=== PATIENT | female | born 1940 | race American Indian/Alaskan Native ===

== ENCOUNTER 2017-06-21 10:57 | Emergency (ER) | payer MEDICARE, BC ==
[2017-06-21 10:58] VITALS: PULSE 92; BMI 23.8
[2017-06-21 11:45] VITALS: RESP 18
[2017-06-21 12:25] VITALS: TEMP 97.9
[2017-06-21 12:45] LABS: BASO # 0.02 K/mm3 (0.0-2.0); BASO % 0.2 % (0.0-3.0); EOS # 0.2 (0.0-0.7); GRAN # 7.74 (1.4-6.5); GRAN % 81.1 % (50.0-68.0); HEMATOCRIT 34.2 % (36.0-48.0); LYMPH # 0.9 (1.2-3.4); LYMPH % 9.9 % (22.0-35.0); MEAN CELL VOLUME 86.4 fl (80.0-105.0); MEAN CORPUSCULAR HEMOGLOBIN 28.3 pg (25.0-35.0); MEAN CORPUSCULAR HGB CONC 32.7 g/dl (31.0-37.0); MEAN PLATELET VOLUME 10.5 fl (7.0-11.0); MONO # 0.7 (0.1-0.6); MONO % 6.8 % (1.0-6.0); RED CELL DISTRIBUTION WIDTH 16.7 % (11.5-14.5); WHITE BLOOD COUNT 9.5 10^3/ul (4.5-11.0)
[2017-06-21 12:49] LABS: INR 1.84 (0.93-1.08); PARTIAL THROMBOPLASTIN TIME 31.8 Seconds (25.1-36.5)
[2017-06-21 12:51] LABS: ALB/GLOB RATIO 1.2 (1.1-1.8); ALKALINE PHOSPHATASE 106 U/L (38-126); ALT/SGPT 36 U/L (7-56); AST/SGOT 42 U/L (14-36); BILIRUBIN,TOTAL 1.8 mg/dL (0.2-1.3); BLOOD UREA NITROGEN 24 mg/dL (7-21); CALCIUM 9.8 mg/dL (8.4-10.5); CARBON DIOXIDE 29 mmol/L (21-33); CHLORIDE 103 mmol/L (98-107); GFR AFRICAN-AMERICAN > 60; GLUCOSE,RANDOM 95 mg/dL (70-110); POTASSIUM 4.1 mmol/L (3.6-5.0); SODIUM 138 mmol/L (132-148); TOTAL PROTEIN 7.2 g/dL (5.8-8.3)
[2017-06-21 13:02] LABS: TROPONIN I < 0.01 ng/mL
--- NOTE | 2017-06-21 13:14 | ED PDOC ---
Arrival/HPI - General Chief Complaint: GI Problem Time Seen by Provider: 06/21/17 11:24 - History of Present Illness Narrative History of Present Illness (Text): 06/21/17 13:12 A 76 year old female, Past Medical History - Provider Review Nursing Documentation Reviewed: Yes - Infectious Disease Hx of Infectious Diseases: None - Reproductive Menopause: Yes - Cardiac Hx Cardiac Disorders: Yes (CAD, EF 16% with primacor infusion at home) Hx Congestive Heart Failure: Yes Hx Hypertension: Yes Hx Pacemaker: Yes - Pulmonary Hx Respiratory Disorders: Yes (Pulmonary embolism) Hx Chronic Obstructive Pulmonary Disease (COPD): Yes Hx Pneumonia: Yes - Neurological Hx Neurological Disorder: Yes (Multiple sclerosis) - HEENT Hx HEENT Disorder: Yes (WEARS RX GLASSES) - Hematological/Oncological Hx Cancer: Yes (Right breast CA with radiation) - Integumentary Hx Dermatological Disorder: Yes (BILATERAL LEG DANK A+3 MORE TO LEFT THAN RIGHT) - Musculoskeletal/Rheumatological Hx Falls: No - Gastrointestinal Hx Gastrointestinal Disorders: Yes (COLON POLYPS,LARGE CECAL POLYP,RIGHT HERNIORHAPPHY) - Genitourinary/Gynecological Hx Urinary Tract Infection: Yes - Psychiatric Hx Psychophysiologic Disorder: No Hx Emotional Abuse: No Hx Physical Abuse: No Hx Substance Use: No - Surgical History Other/Comment: rt chest lito cath - Anesthesia Hx Anesthesia Reactions: No Hx Malignant Hyperthermia: No - Suicidal Assessment Feels Threatened In Home Enviroment: No Family/Social History - Physician Review Nursing Documentation Reviewed: Yes Family/Social History: Unknown Family HX Smoking Status: Never Smoked Hx Alcohol Use: No Hx Substance Use: No Allergies/Home Meds Allergies/Adverse Reactions: Allergies FRESH FRUIT Allergy (Intermediate, Uncoded 06/21/17 11:45) UNKNOWN Home Medications: Home Meds Medication Instructions Recorded Confirmed Warfarin [Coumadin] 2 mg PO Q48H 04/21/15 06/21/17 Carvedilol 3.125 mg PO DAILY 11/23/15 06/21/17 Digoxin 0.25 mg PO DAILY 11/23/15 06/21/17 Furosemide 40 mg PO DAILY 11/23/15 06/21/17 Milrinone [Primacor 1mg/ml Inj 2.8 ml IV 06/21/17 (10ml)] Potassium Gluconate [Potassium] 20 meq PO DAILY 06/21/17 06/21/17 Physical Exam Vital Signs Reviewed: Yes Vital Signs Temp Pulse Resp BP Pulse Ox 06/21/17 12:24 97.9 F 69 18 135/86 97 06/21/17 11:38 96.8 F L 73 18 138/91 H 98 Temperature: Afebrile Blood Pressure: Hypertensive Pulse: Regular Respiratory Rate: Normal Medical Decision Making ED Course and Treatment: 06/21/17 13:12 Impression: A 76 year old female with Plan: -- EKG -- Labs -- Urine culture and Urinalysis -- Pepcid and Zofran -- Reassess and disposition Progress Notes: - Lab Interpretations Lab Results: 06/21/17 12:15 06/21/17 12:15 Lab Results 06/21/17 12:15: Sodium 138, Potassium 4.1, Chloride 103, Carbon Dioxide 29, Anion Gap 10, BUN 24 H, Creatinine 0.9, Est GFR ( Amer) > 60, Est GFR ( Non-Af Amer) > 60, Random Glucose 95, Calcium 9.8, Total Bilirubin 1.8 H, AST 42 H, ALT 36, Alkaline Phosphatase 106, Lactate Dehydrogenase 588, Total Creatine Kinase 84, Troponin I < 0.01 D, NT-Pro-B Natriuret Pep 5480 H, Total Protein 7.2, Albumin 3.9, Globulin 3.3, Albumin/Globulin Ratio 1.2 06/21/17 12:15: WBC 9.5 D, RBC 3.96, Hgb 11.2 L, Hct 34.2 L, MCV 86.4, MCH 28.3 , MCHC 32.7, RDW 16.7 H, Plt Count 203, MPV 10.5, Gran % 81.1 H, Lymph % (Auto) 9.9 L, [place] % (Auto) 6.8 H, Eos % (Auto) 2.0, Baso % (Auto) 0.2, Gran # 7.74 H, Lymph # 0.9 L, [place] # 0.7 H, Eos # 0.2, Baso # 0.02 06/21/17 12:15: PT 20.5 H, INR 1.84 H, APTT 31.8 I have reviewed the lab results: Yes - Medication Orders Current Medication Orders: Discontinued Medications Famotidine (Pepcid) 20 mg IVP STAT STA Stop: 06/21/17 12:06 Last Admin: 06/21/17 12:24 Dose: 20 mg IVP Administration Document 06/21/17 12:24 EQ (Rec: 06/21/17 12:24 EQ [facility] [id number]) Charges for Administration # of IVP Administrations 1 Ondansetron HCl (Zofran Inj) 4 mg IVP STAT STA Stop: 06/21/17 12:06 Last Admin: 06/21/17 12:24 Dose: 4 mg IVP Administration Document 06/21/17 12:24 EQ (Rec: 06/21/17 12:24 EQ [facility] [id number]) Charges for Administration # of IVP Administrations 1 - Scribe Statement The provider has reviewed the documentation as recorded by the Shiraibarabella Bustamante Provider Scribe Attestation: All medical record entries made by the Scribe were at my direction and personally dictated by me. I have reviewed the chart and agree that the record accurately reflects my personal performance of the history, physical exam, medical decision making, and the department course for this patient. I have also personally directed, reviewed, and agree with the discharge instructions and disposition. Disposition/Present on Arrival - Present on Arrival History of DVT/PE: No History of Uncontrolled Diabetes: No Urinary Catheter: No History of Decub. Ulcer: No History Surgical Site Infection Following: None - Disposition
--- NOTE | 2017-06-21 13:23 | ED PDOC ---
Arrival/HPI - General Chief Complaint: GI Problem Time Seen by Provider: 06/21/17 11:24 - History of Present Illness Narrative History of Present Illness (Text): 75 yo F w h/o Breast cancer currently in remission, systolic CHF on Milrinone drip among other comorbidities presents sent in from Dr. Hull's office where she had went for a routine visit, c/o mild epigastric disocmfort commencing in the am, she stated she took her bid cardevilol with a bagel in am, which did not exacerbate her epigasric docomfort, she held food and rx down but hen vomited twice in the doctor's office, prompting triage to ed. 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 She went to bed unevetfully w/ o Gi syptomatology, and denies PMHx: Systolic CHF (EF 16% on milrinone drip), Breast CA in remission, COPD, PE (on coumadin), CAD, MS, Osteopenia 06/21/17 13:13 Past Medical History - Infectious Disease Hx of Infectious Diseases: None - Reproductive Menopause: Yes - Cardiac Hx Cardiac Disorders: Yes (CAD, EF 16% with primacor infusion at home) Hx Congestive Heart Failure: Yes Hx Hypertension: Yes Hx Pacemaker: Yes - Pulmonary Hx Respiratory Disorders: Yes (Pulmonary embolism) Hx Chronic Obstructive Pulmonary Disease (COPD): Yes Hx Pneumonia: Yes - Neurological Hx Neurological Disorder: Yes (Multiple sclerosis) - HEENT Hx HEENT Disorder: Yes (WEARS RX GLASSES) - Hematological/Oncological Hx Cancer: Yes (Right breast CA with radiation) - Integumentary Hx Dermatological Disorder: Yes (BILATERAL LEG DANK A+3 MORE TO LEFT THAN RIGHT) - Musculoskeletal/Rheumatological Hx Falls: No - Gastrointestinal Hx Gastrointestinal Disorders: Yes (COLON POLYPS,LARGE CECAL POLYP,RIGHT HERNIORHAPPHY) - Genitourinary/Gynecological Hx Urinary Tract Infection: Yes - Psychiatric Hx Psychophysiologic Disorder: No Hx Emotional Abuse: No Hx Physical Abuse: No Hx Substance Use: No - Surgical History Other/Comment: rt chest lito cath - Anesthesia Hx Anesthesia Reactions: No Hx Malignant Hyperthermia: No - Suicidal Assessment Feels Threatened In Home Enviroment: No Family/Social History - Physician Review Nursing Documentation Reviewed: Yes Family/Social History: No Known Family HX Smoking Status: Never Smoked Hx Alcohol Use: No Hx Substance Use: No Allergies/Home Meds Allergies/Adverse Reactions: Allergies FRESH FRUIT Allergy (Intermediate, Uncoded 06/21/17 11:45) UNKNOWN Home Medications: Home Meds Medication Instructions Recorded Confirmed Warfarin [Coumadin] 2 mg PO Q48H 04/21/15 06/21/17 Carvedilol 3.125 mg PO DAILY 11/23/15 06/21/17 Digoxin 0.25 mg PO DAILY 11/23/15 06/21/17 Furosemide 40 mg PO DAILY 11/23/15 06/21/17 Milrinone [Primacor 1mg/ml Inj 2.8 ml IV 06/21/17 (10ml)] Potassium Gluconate [Potassium] 20 meq PO DAILY 06/21/17 06/21/17 Physical Exam Vital Signs Temp Pulse Resp BP Pulse Ox 06/21/17 17:04 61 18 128/71 100 06/21/17 15:31 66 18 131/76 98 06/21/17 13:48 64 18 133/78 97 06/21/17 12:24 97.9 F 69 18 135/86 97 06/21/17 11:38 96.8 F L 73 18 138/91 H 98 Medical Decision Making ED Course and Treatment: 76 y/o woman w/ pmhx of chf on milrinone among other comorbidities presents c/o epigastric disocmfort since am, 1 -2 episodes of vomting in pmd Dr. Schreiber's offi e, labs wnl, pasing po challenge. 06/21/17 16:50 Pt feels better , very eager to go home, serial bowel exams benign, labs wnl. a/p karinley gastritis - Lab Interpretations Lab Results: 06/21/17 12:15 06/21/17 12:15 Lab Results 06/21/17 17:25: Troponin I < 0.01 06/21/17 12:15: Sodium 138, Potassium 4.1, Chloride 103, Carbon Dioxide 29, Anion Gap 10, BUN 24 H, Creatinine 0.9, Est GFR ( Amer) > 60, Est GFR ( Non-Af Amer) > 60, Random Glucose 95, Calcium 9.8, Total Bilirubin 1.8 H, AST 42 H, ALT 36, Alkaline Phosphatase 106, Lactate Dehydrogenase 588, Total Creatine Kinase 84, Troponin I < 0.01 D, NT-Pro-B Natriuret Pep 5480 H, Total Protein 7.2, Albumin 3.9, Globulin 3.3, Albumin/Globulin Ratio 1.2 06/21/17 12:15: WBC 9.5 D, RBC 3.96, Hgb 11.2 L, Hct 34.2 L, MCV 86.4, MCH 28.3 , MCHC 32.7, RDW 16.7 H, Plt Count 203, MPV 10.5, Gran % 81.1 H, Lymph % (Auto) 9.9 L, [place] % (Auto) 6.8 H, Eos % (Auto) 2.0, Baso % (Auto) 0.2, Gran # 7.74 H, Lymph # 0.9 L, [place] # 0.7 H, Eos # 0.2, Baso # 0.02 06/21/17 12:15: PT 20.5 H, INR 1.84 H, APTT 31.8 06/21/17 12:10: Lipase 38 - RAD Interpretation Radiology Orders: 06/21/17 14:28 CHEST TWO VIEWS (PA/LAT) [RAD] Stat 06/21/17 14:29 ABD 2 VIEWS (FLAT/UP OR DECUB) [RAD] Stat - Medication Orders Current Medication Orders: Discontinued Medications Famotidine (Pepcid) 20 mg IVP STAT STA Stop: 06/21/17 12:06 Last Admin: 06/21/17 12:24 Dose: 20 mg IVP Administration Document 06/21/17 12:24 EQ (Rec: 06/21/17 12:24 [place] [facility] [id number][place] Charges for Administration # of IVP Administrations 1 Metoclopramide HCl (Reglan) 10 mg IVP STAT STA Stop: 06/21/17 16:48 Last Admin: 06/21/17 17:28 Dose: 10 mg IVP Administration Document 06/21/17 17:28 EQ (Rec: 06/21/17 17:28 EQ [facility] [id number]) Charges for Administration # of IVP Administrations 1 Ondansetron HCl (Zofran Inj) 4 mg IVP STAT STA Stop: 06/21/17 12:06 Last Admin: 06/21/17 12:24 Dose: 4 mg IVP Administration Document 06/21/17 12:24 EQ (Rec: 06/21/17 12:[address] [facility] [id number] Charges for Administration # of IVP Administrations 1 Disposition/Present on Arrival - Present on Arrival Any Indicators Present on Arrival: No History of DVT/PE: No History of Uncontrolled Diabetes: No Urinary Catheter: No History of Decub. Ulcer: No History Surgical Site Infection Following: None - Disposition Have Diagnosis and Disposition been Completed?: Yes Diagnosis: Gastritis Disposition: HOME/ ROUTINE Disposition Time: 18:41 Patient Plan: Discharge Patient Problems: Current Active Problems Problem Status Onset Gastritis Acute Condition: IMPROVED Discharge Instructions (ExitCare): Gastritis (ED) Print Language: ICELANDIC Additional Instructions: Avoid milk and dairy products,as well as meat, eat simple foods such as bananas/ toast and bothy soups, and follow up with Dr. Schreiber as needed. Continue with all your regular management. Prescriptions: Famotidine [Pepcid] 20 mg PO BID PRN #10 tab PRN Reason: Dyspepsia Ondansetron ODT [Zofran ODT] 4 mg PO Q8 PRN #10 tab PRN Reason: Nausea/Vomiting Forms: [facility] (Latvian)
--- NOTE | 2017-06-21 16:03 | RAD ---
HISTORY: r/o airspace disease COMPARISON: 07/14/2016 TECHNIQUE: Chest PA and lateral FINDINGS: LUNGS: No active pulmonary disease. PLEURA: Small pleural effusions CARDIOVASCULAR: Moderate cardiomegaly. Single lead pacemaker OSSEOUS STRUCTURES: No significant abnormalities. VISUALIZED UPPER ABDOMEN: Normal. OTHER FINDINGS: None. IMPRESSION: No active disease.
--- NOTE | 2017-06-21 16:04 | RAD ---
HISTORY: examine gas pattern COMPARISON: No prior. FINDINGS: BOWEL: Normal. No obstruction. No free air. BONES: Normal. OTHER FINDINGS: None. IMPRESSION: No active disease.
[2017-06-21 17:05] VITALS: O2SAT 100
[2017-06-21 18:49] VITALS: BP 125/69; PULSE 65
--- NOTE | 2017-06-21 23:18 | CARD ---
APPROVED REPORT EKG Measurement Heart [id number] <Conclusion> Normal sinus rhythm Left axis deviation Inferior infarct, age undetermined Anterolateral infarct, age undetermined Abnormal ECG
== END 2017-06-21 19:05 | disposition home or self-care (01) ==
LOC: ED 10:57
DX: K29.70 Gastritis, unspecified, without bleeding (principal); G35 Multiple sclerosis; I25.10 Atherosclerotic heart disease of native coronary artery without angina pectoris; I50.9 Heart failure, unspecified; I10 Essential (primary) hypertension
CPT/HCPCS: 71020; 74020; 80053; 82550; 83615; 83690; 83880; 84484; 85025; 85610; 85730; 93005; 96374; 96375; 99285; J2405; J2765

== ENCOUNTER 2018-08-09 11:36 | Outpatient (CLI) | payer MEDICARE | END 2018-08-09 11:37 | disposition home or self-care (01) | LOC: RAD 11:36 ==

== ENCOUNTER 2018-09-04 14:59 | Outpatient (CLI) | payer MEDICARE | END 2018-09-04 15:00 | disposition home or self-care (01) | LOC: OPLAB 14:59 | DX: Z79.01 Long term (current) use of anticoagulants (principal) ==

== ENCOUNTER 2018-09-20 13:15 | Outpatient (CLI) | payer MEDICARE | END 2018-09-20 13:16 | disposition home or self-care (01) | LOC: OPLAB 13:15 ==

== ENCOUNTER 2018-10-02 14:10 | Outpatient (CLI) | payer MEDICARE | END 2018-10-02 14:11 | disposition home or self-care (01) | LOC: OPLAB 14:10 ==

== ENCOUNTER 2018-10-09 14:03 | Outpatient (CLI) | payer MEDICARE | END 2018-10-09 14:04 | disposition home or self-care (01) | LOC: OPLAB 14:03 ==

== ENCOUNTER 2018-10-23 13:02 | Outpatient (CLI) | payer MEDICARE | END 2018-10-23 13:03 | disposition home or self-care (01) | LOC: OPLAB 13:02 ==